=== PATIENT | male | born 1955 | race Caucasian/White ===

== ENCOUNTER 2024-01-31 12:53 | Emergency (ER) | payer MEDICARE, SELFPAY ==
[2024-01-31 13:04] VITALS: BP 151/89
[2024-01-31 13:25] LABS: % Basophils 0.6 % (0-2); % Eosinophils 1.5 % (0-6); % Immature Granulocytes 0.5 % (0-0.5); % Monocytes 7.4 % (1.7-9.3); Absolute Basophils 0.1 10^3/uL (0-0.2); Absolute Eosinophils 0.2 10^3/uL (0-0.7); Absolute Immature Granulocytes 0.1 10^3/uL (0-0.05); Absolute Lymphocytes 1.8 10^3/uL (1.2-3.4); Absolute Monocytes 0.7 10^3/uL (0.1-0.6); Absolute Neutrophils 7.2 10^3/uL (1.4-6.5); Hematocrit 40.6 % (39.0-52.0); Hemoglobin 14.3 g/dL (13.0-18.0); Mean Corp Hgb Conc. 35.2 g/dL (33.0-37.0); Mean Corpuscular Hgb 30.5 pg (27.0-31.0); Mean Corpuscular Volume 86.6 fL (80.0-94.0); Nucleated Red Blood Cells % 0 % (-); Platelet Count 314 10^3/uL (130-400); Red Blood Cell Count 4.69 10^6/uL (4.70-6.10); Red Cell Dist. Width 12.5 % (11.5-14.5)
[2024-01-31 13:40] LABS: ALT (SGPT) 39 U/L (0-50); AST (SGOT) 35 U/L (17-59); Albumin 4.8 g/dl (3.5-5.0); Alkaline Phosphatase 78 U/L (38-126); Blood Urea Nitrogen 15 mg/dl (9-20); Calcium 9.9 mg/dl (8.4-10.2); Carbon Dioxide 24 mmol/L (22-30); Chloride 103 mmol/L (98-107); Glucose 142 mg/dl (70-99); Potassium 4.4 mmol/L (3.5-5.1); Sodium 138 mmol/L (135-145); Total Bilirubin 0.7 mg/dl (0.2-1.3); Total Protein 7.6 g/dl (6.3-8.2); eGFR > 60.00
[2024-01-31 13:53] LABS: Urine Albumin Negative (Neg - Trace); Urine Bilirubin Negative (Negative); Urine Character Slightly Cloudy (Clear); Urine Color Yellow; Urine Glucose 3+ (Negative); Urine Ketone Negative (Negative); Urine Leukocyte 2+ (Negative); Urine Nitrite Negative (Negative); Urine Occult Blood Negative (Negative); Urine Urobilinogen Negative (Neg - 1+)
[2024-01-31 14:02] LABS: Urine Bacteria Few (Negative); Urine Mucus Few; Urine Red Blood Cell 0-2 /HPF (0-2); Urine Squamous Cell 0-2 /LPF (Few)
[2024-01-31 15:05] VITALS: BP 132/80
--- NOTE | 2024-01-31 15:30 | ED.GENMED ---
History of Present Illness
General
Chief Complaint: Male Genito-Urinary Symptoms
Source: patient
Exam Limitations: none
Time Seen by Provider: 01/31/24 15:00
Nursing documentation reviewed up to this point in time: agreed with
Travel History
Have you had any contact with someone who has COVID-19?: No
Do you have any symptoms of coronavirus? Fever > 100 degrees, chills, cough, shortness of breath, sore throat, loss of taste or smell, muscle aches, or headache?: No
History of Present Illness
History of Present Illness:
Patient to ED with complaint of difficulty retracting foreskin. States he started ozempic and jardiance 2 weeks ago and since then noticed difficulty retracting. Denies any pain or redness. States now he is unable to retract foreskin. Denies
difficulty passing urine but states he has to sit to void. He called PCP this AM and was advised to come to ED. Brought to ED by spouse for eval.
Past History
Past History
ED Past Medical History: Hypercholesterolemia and NIDDM
Review of Systems
Review of Systems
Allergies reviewed?: Yes
All Other Systems: ROS reviewed and negative except as documented in HPI and ROS
Constitutional: Reports no symptoms
ABD/GI: Reports no symptoms
: Reports other (Phimosis)
Musculoskeletal: Reports no symptoms
Skin: Reports no symptoms
Neurological: Reports no symptoms
Psychiatric: Reports no symptoms
Phy Exam
General Physical Exam
General Presentation: well appearing and no apparent distress
General age: appears stated age
General Skin: warm and dry
General Habitus: normal
General Mental: alert
Genitourinary Exam Male
Exam Male: no discharge, non circumcised (Phimosis), normal testicular exam, no evidence of trauma, no lesions, no testicular swelling and no testicular tenderness
Musculoskeletal Exam
Musculoskeletal Exam: full ROM and neuro vasc intact
Skin Exam
Skin Exam: normal color, warm/dry and no rash
Psychiatric Exam
Psychiatric Exam: normal mood/affect
Course
Orders/Labs/Results
Orders:
Orders
01/31/24 13:12
Complete Blood Count/With Diff Urgent
Comprehensive Metabolic Panel Urgent
Urinalysis Reflex To Culture Urgent
Date Specimen was Collected: 01/31/24
Time Specimen was Collected: 13:09
Urine Microscopic Reflex Cult Urgent
Urine Culture Urgent
LIZ Source: U
Specimen Description:
Date Specimen was Collected: 01/31/24
Time Specimen was Collected: 13:09
01/31/24 15:23
Betamethasone Dipropionate [Diprosone Cream 0.05%] See Dose Instructions TOPICAL NOW STA
Abnormal Lab Results
01/31/24
13:12
RBC 4.69 L 10^6/uL
(4.70-6.10)
Abs Immat Gran (auto) 0.1 H 10^3/uL
(0-0.05)
Absolute Neuts (auto) 7.2 H 10^3/uL
(1.4-6.5)
Absolute Monos (auto) 0.7 H 10^3/uL
(0.1-0.6)
Lymphocytes % 18.0 L %
(20.5-51.1)
Glucose 142 H mg/dl
(70-99)
Leukocyte Esterase Rfl 2+ A
(Negative)
Urine Bacteria (Reflex) Few A
(Negative)
Urine Glucose 3+ A
(Negative)
01/31/24 13:12
01/31/24 13:12
Vital Signs
Initial and Last Documented VS:
Initial Vital Signs
Temp Pulse Resp BP Pulse Ox
98.2 F 82 16 151/89 98
01/31/24 13:04 01/31/24 13:04 01/31/24 13:04 01/31/24 13:04 01/31/24 13:04
Last Documented Vital Signs
Temp Pulse Resp BP Pulse Ox
98.2 F 82 16 132/80 95
01/31/24 13:04 01/31/24 13:04 01/31/24 13:04 01/31/24 15:05 01/31/24 15:06
*Critical Care Note
Total Time (30-74mins, 75-104mins- exclusive of procedures): Not Applicable
Update Note
Update Note:
Dr. Flores notified via tiger text. Recommends betamethasone bid under foreskin. Patient to [facility] office in AM to schedule in office appt for this week. Patient is agreeable to plan. given instructions on s/s to return to ED and he is agreeable
to plan.
ED Attending Note
-
Portions of this chart may have been created with voice recognition software.� Occasional wrong word or��sound alike� substitutions may have occurred due to the inherent limitations of voice recognition software.
Discharge Plan
Departure
Patient Disposition: Home (Routine Discharge)
Date of Disposition: 01/31/24
Time of Disposition: 15:24
Patient with high blood pressure during this ER visit?: No
Condition: Good
Covid-19: Not Applicable
Discharge Problem:
Phimosis
Instructions: General
Prescriptions:
New
betamethasone dipropionate 0.05 % cream
1 applic topical BID Qty: 15 0RF
Rx Instructions:
apply to inner part of foreskin
Referrals:
Rosita Blanco MD [Family Provider] -
Jimmy Flores Jr., MD [Active] - Tomorrow (Call office in the AM to schedule your appointment for this week.)
Activity Restrictions/Additional Instructions:
Return to the emergency department immediately for any difficulty passing urine.
Interventions
Interventions:
*ED COVID-19 Vaccine History Last Done: 01/31/24 13:04
ED-Male Genitourinary Assessment Last Done: 01/31/24 15:09
Discharge Date and Time
Print Language: MACEDONIAN
[2024-01-31] MEDS: DIPROSONE 0.05% CREAM 1 APPLIC TOPICAL (16:04)
[2024-01-31 16:08] VITALS: BP 125/95
== END 2024-01-31 16:28 | disposition home or self-care (01) ==
LOC: EMR 12:53
PROVIDERS: EMERGENCY PHYSICIAN Emergency Medicine; FAMILY PHYSICIAN Family Medicine
DX: N47.1 Phimosis (principal)
CPT/HCPCS: 99283; 80053; 81003; 81015; 85025; 87077; 87086; 87147

== ENCOUNTER 2024-02-29 06:29 | Day surgery (SDC) | payer MEDICARE, SELFPAY ==
[2024-02-22 12:13] VITALS: BMI 30.8
[2024-02-22 14:50] LABS: INR 1.03; PT 13.3 Sec (11.4-14.6)
[2024-02-22 14:51] LABS: APTT 28.3 Sec (23.4-35.0)
[2024-02-29] VITALS (9 sets, daily range): BP systolic 126–153; BP diastolic 76–94; BMI 30.8
[2024-02-29] MEDS: NORMOSOL-R 1000 IV (11:05)
[2024-02-29 11:07] LABS: Glucose - Point of Care 117 mg/dl (70-99)
[2024-02-29 13:10] LABS: Glucose - Point of Care 101 mg/dl (70-99)
[2024-02-29 14:49] LABS: Glucose - Point of Care 120 mg/dl (70-99)
[2024-02-29] MEDS: FLOMAX 0.400000000000000022 MG PO (15:06)
== END 2024-02-29 15:57 | disposition home or self-care (01) ==
LOC: SDS 06:29
PROVIDERS: ATTENDING PHYSICIAN Specialist; FAMILY PHYSICIAN Family Medicine
DX: N47.1 Phimosis (principal); N48.0 Leukoplakia of penis
CPT/HCPCS: 54161; 88304; 36415; 82962; 85610; 85730; 87070; 87147; 93005